=== PATIENT | male | born 1955 | race Caucasian/White ===

== ENCOUNTER 2023-01-10 12:47 | Emergency (ER) | payer BC ==
[2023-01-10] MEDS ORDERED: Bacitracin/Neomycin/Polymyxin B Oint 0.9 GM U/D Packet ONE (12:54)
[2023-01-10] MEDS ORDERED: Bacitracin/Neomycin/Polymyxin B Oint 0.9 GM U/D Packet TOP ONE (12:56)
== END 2023-01-10 13:15 | disposition home or self-care (01) ==
LOC: KA.ED 12:47
DX: S61.211A Laceration without foreign body of left index finger without damage to nail, initial encounter (principal); W26.8XXA Contact with other sharp object(s), not elsewhere classified, initial encounter
CPT/HCPCS: 99282; 99283